=== PATIENT | male | born 1955 | race Caucasian/White ===

== ENCOUNTER 2016-04-05 13:27 | Emergency (ER) | payer OTHER ==
[2016-04-05] MEDS ORDERED: cloNIDine HCl 0.1 MG TAB ONE (13:43)
[2016-04-05 14:03] LABS: #Basophils 0.1 thou/uL (0.0-0.2); #Eosinphils 0.2 thou/uL (0.0-0.7); #Lymphocytes 3.4 thou/uL (1.20-3.40); #Monocytes 1.1 thou/uL (0.11-0.59); #Neutrophils 6.2 thou/uL (1.40-6.50); %Basophils 1.1 % (0.0-1.0); %Eosinophils 2.1 % (0.0-10.0); %Lymphocytes 30.6 % (21.0-51.0); %Monocytes 9.9 % (0.0-10.0); Hematocrit 45.4 % (42.0-52.0); Mean Platelet Volume 9.4 fL (7.4-10.4); Red Blood Cell (RBC) Count 5.32 mill/uL (4.70-6.10)
[2016-04-05 14:17] LABS: ALT (SGPT) 22 U/L (0-55); AST (SGOT) 19 U/L (5-34); Alkaline Phosphatase 86 U/L (40-150); Anion Gap 15 mmol/L (10-20); BUN (Urea Nitrogen) 18 mg/dL (8.4-25.7); Bilirubin, Total 0.4 mg/dL (0.2-1.2); Calc. Creatinine Clearance 0 mL/min (70-130); Calcium 9.3 mg/dL (7.8-10.44); Carbon Dioxide 24 mmol/L (22-29); Chloride 105 mmol/L (98-107); Estimated GFR-MDRD 83; Globulin 3.4 g/dL (2.4-3.5); Protein, Total 7.3 g/dL (6.0-8.3)
--- NOTE | 2016-04-05 14:42 | ERRECORD ---
[facility] EMERGENCY RECORD HPI HYPERTENSION (13:45 SHAN) CHIEF COMPLAINT: Patient presents for evaluation of high blood pressure. HISTORIAN: History provided by patient, History provided by patient's family, blood pressure going up; has been checking it and many elevated at home. hasn't been able to see provider yet after hospitalization in for cva. TIME COURSE: Gradual onset of symptoms. ASSOCIATED WITH: No associated symptoms. ROS (13:46 SHAN) CONSTITUTIONAL: Negative constitutional review of systems. EYES: Negative eye review of systems. ENT: Negative ears, nose, throat review of systems. CARDIOVASCULAR: Negative cardiovascular review of systems, c/o hypertension. RESPIRATORY: Negative respiratory review of systems. GI: Negative gastrointestinal review of systems. MUSCULOSKELETAL: Negative musculoskeletal review of systems. SKIN: Negative skin review of systems. NEUROLOGIC: Negative neurologic review of systems. NOTES: All systems reviewed, negative except as described above. PAST MEDICAL HISTORY (13:40 MCBE) MEDICAL HISTORY: Flu vaccine not up to date, Tetanus not up to date, Past medical history includes history of hypertension, which has not been treated, Patient is noncompliant. Stroke on 2015. MALE SURGICAL HISTORY: Patient has no surgical history. PSYCHIATRIC HISTORY: No previous psychiatric history. SOCIAL HISTORY: Patient denies alcohol use, Patient denies drug use, Patient has no smoking history, Lives at home. KNOWN ALLERGIES No Known Allergies (Unconfirmed) No Known Drug Allergies CURRENT MEDICATIONS atorvastatin: TABLET : Strength - 40 mg : ORAL Patient Dose: 1 tab(s) Oral once a day (at bedtime). (13:48 MCBE) aspirin: TABLET : Strength - 81 mg : ORAL Patient Dose: 1 mg Oral once a day. (13:49 MCBE) lisinopril: TABLET : Strength - 20 mg : ORAL Patient Dose: 1 mg Oral 2 times a day. (13:49 MCBE) metFORMIN: TABLET : Strength - 500 mg : ORAL &a-1R&a+25V*p+0X*a5886Q*c202B*c15G*c2P*p-0X&a-25V&a+1R Name: Juan Gray : 1955 M60 MedRec: [id number] AcctNum: [id number] Prepared: FriApr 05, 2016 14:50 by Interface Page 1 of 3 pMD [facility] EMERGENCY RECORD Patient Dose: 1 mg Oral 2 times a day. (13:50 MCBE) VITAL SIGNS VITAL SIGNS: BP: 192/99, Pulse: 84, Resp: 18, Temp: 98.1 (Oral), Pain: 0, O2 sat: 96 on Room Air, Time: 04/05/2016 13:35. (13:35 MCBE) BP: 165/107, Pulse: 85, Resp: 18, O2 sat: 96 on Room Air, Time: 04/05/2016 13:46. (13:46 MCBE) BP: 168/100, Pulse: 77, Resp: 16, Pain: 0, O2 sat: 96 on Room Air, Time: 04/05/2016 14:03. (14:03 MSPE) BP: 167/92, Pulse: 78, Resp: 20, Pain: 0, O2 sat: 95 on Room Air, Time: 04/05/2016 14:15. (14:15 MSPE) BP: 154/95, Pulse: 79, Resp: 20, Pain: 0, O2 sat: 95 on Room Air, Time: 04/05/2016 14:30. (14:30 MSPE) PHYSICAL EXAM (13:46 SHAN) CONSTITUTIONAL: Patient afebrile, Pulse normal, Blood pressure normal, Respiratory rate normal, Normal pulse oximetry, Patient appears non toxic, Patient appears pain free, Patient alert and oriented to person, place and time, Nursing notes reviewed. HEAD: Head exam included findings of head atraumatic, normocephalic. EYES: Eye exam included findings of eyelids normal to inspection, Pupils equally round and reactive to light, Extraocular muscles intact. ENT: Pharynx exam normal, Uvula exam normal, Tonsil exam normal. NECK: Neck exam included findings of normal range of motion, Trachea midline. RESPIRATORY CHEST: Respiratory and chest exam normal. CARDIOVASCULAR: Cardiovascular exam included findings of heart rate regular rate and rhythm, Heart sounds normal. ABDOMEN MALE: Abdominal exam included findings of abdomen nontender, Bowel sounds normal. BACK: Back exam normal. UPPER EXTREMITY: Upper extremity exam included findings of inspection normal, Range of motion normal. NEURO: Neuro exam normal. SKIN: Skin exam normal. MEDICATION ADMINISTRATION SUMMARY Drug Name: Angelaaprrocio, Dose Ordered: 2 tab(s), Route: Oral, Status: Given, Time: 13:45 04/05/2016, Detailed record available in Medication Service section. DOCTOR NOTES (13:47 MADISON) TEXT: Adult male with hypertension, diabetes, obesity; who had a stroke in Feb 2016 involving speech and right leg movement. Largely resolved from that episode but hasn't gotten in to see a provider yet and bp has been staying elevated. &a-1R&a+25V*p+0X*e0100K*c202B*c15G*c2P*p-0X&a-25V&a+1R Name: Juan Gray : 1955 M60 MedRec: [id number] AcctNum: [id number] Prepared: FriApr 05, 2016 14:50 by Interface Page 2 of 3 pMD [facility] EMERGENCY RECORD PROBLEM LIST No recorded problems DIAGNOSIS (14:28 MADISON) FINAL: PRIMARY: Hypertension, ADDITIONAL: CEREBROVASCULAR DISEASE UNSPECIFIED. PRESCRIPTION (14:29 MADISON) Norvasc: TABLET : 5 mg : ORAL : Quantity: 1 Unit: tab(s) Route: ORAL Schedule: once a day (in the morning) Dispense: 30 Unit: tab(s) May substitute. Refills: 2 . NOTES: No Refills. DISPOSITION PATIENT: Disposition Type: Discharge, Disposition: *Discharge Home. (14:28 MADISON) Patient left the department. (14:45 ROSIE) Wyatt: VANI=Suzette Heard=HENRY Scott, Pallavi WALLACE=MD Ponce Stanley &a-1R&a+25V*p+0X*u6948O*c202B*c15G*c2P*p-0X&a-25V&a+1R Name: Juan Gray : 1955 M60 MedRec: [id number] AcctNum: [id number] Prepared: FriApr 05, 2016 14:50 by Interface Page 3 of 3 pMD MTDD
--- NOTE | 2016-04-05 14:50 | PICIS ---
[facility] EMERGENCY RECORD TRIAGE (13:34 MCBE) TRIAGE NOTES: home health personal told person to bring patient to er for high blood pressure. stroke on feb. taking medications as prescribed. (13:34 MCBE) PATIENT: NAME: Juan Gray, AGE: 60, GENDER: male, : Fri1955, TIME OF GREET: FriApr 05, 2016 13:28, PREFERRED LANGUAGE: Czech, ETHNICITY: Not or , ECODE BILLING MAP: [facility], SSN: [id number], Zip Code: [address], KG WEIGHT: [phone], PHONE: , , , PERSON ID: [id number]. (13:34 MCBE) COMPLAINT: ELEVATED BLOOD PRESSURE. (13:34 MCBE) ADMISSION: URGENCY: 2 Emergent, ADMISSION SOURCE: Home, TRANSPORT: CAR, BED: ER -02. (13:34 MCBE) ASSESSMENT: Assessment: patient denies having any symptoms. denies headache or chest pain. (13:40 MCBE) IMMUNIZATIONS: Flu vaccine up to date, Tetanus immunization up to date. (13:40 MCBE) SIRS SCORING: Heart Rate 55-109 (0), Temp range 96.8-101.1 (0), respiratory rate 12-24 (0), Mental Status altered: no (0), Infection or Suspected Infection: No. (13:40 MCBE) TRIAGE SCREENING: Patient denies suicidal ideation, Patient denies presence of domestic violence. (13:40 MCBE) PROVIDERS: TRIAGE NURSE: Suzette Heard. (13:34 MCBE) PREVIOUS VISIT ALLERGIES: No Known Drug Allergies. (13:34 MCBE) No Known Drug Allergies. (13:40 MCBE) KNOWN ALLERGIES No Known Allergies (Unconfirmed) No Known Drug Allergies CURRENT MEDICATIONS atorvastatin: TABLET : Strength - 40 mg : ORAL Patient Dose: 1 tab(s) Oral once a day (at bedtime). (13:48 MCBE) aspirin: TABLET : Strength - 81 mg : ORAL Patient Dose: 1 mg Oral once a day. (13:49 MCBE) lisinopril: TABLET : Strength - 20 mg : ORAL Patient Dose: 1 mg Oral 2 times a day. (13:49 MCBE) metFORMIN: TABLET : Strength - 500 mg : ORAL Patient Dose: 1 mg Oral 2 times a day. (13:50 MCBE) VITAL SIGNS VITAL SIGNS: BP: 192/99, Pulse: 84, Resp: 18, Temp: 98.1 (Oral), Pain: 0, O2 sat: 96 on Room Air, Time: 04/05/2016 13:35. (13:35 MCBE) BP: 165/107, Pulse: 85, Resp: 18, O2 sat: 96 on Room Air, Time: 04/05/2016 &a-1R&a+25V*p+0X*s1717M*c202B*c15G*c2P*p-0X&a-25V&a+1R Name: Juan Gray : 1955 M60 MedRec: [id number] AcctNum: [id number] Prepared: FriApr 05, 2016 14:55 by Interface Page 1 of 8 pMD [facility] EMERGENCY RECORD 13:46. (13:46 MCBE) BP: 168/100, Pulse: 77, Resp: 16, Pain: 0, O2 sat: 96 on Room Air, Time: 04/05/2016 14:03. (14:03 MSPE) BP: 167/92, Pulse: 78, Resp: 20, Pain: 0, O2 sat: 95 on Room Air, Time: 04/05/2016 14:15. (14:15 MSPE) BP: 154/95, Pulse: 79, Resp: 20, Pain: 0, O2 sat: 95 on Room Air, Time: 04/05/2016 14:30. (14:30 MSPE) NURSING ASSESSMENT: HEAD-TO-TOE (13:47 MCBE) CONSTITUTIONAL: Complex assessment performed, Patient arrives ambulatory, Gait steady, History obtained from patient, Patient appears comfortable, Patient cooperative, Patient alert, Oriented to person, place and time, Skin warm, Skin dry, Skin normal in color, Mucous membranes pink, Mucous membranes moist, Patient is well-groomed. PAIN: Patient rates pain as 0 out of 10. NEURO: Pupils equally round and reactive to light, Able to close eyes, Face symmetrical, Speech normal, GCS:, Eye opening: (4) - Spontaneous, Verbal: (5) - Oriented/conversive, Motor: (6) - Obeys commands/Spontaneous, GCS Total: 15. ENT: Ear assessment findings include ear normal to inspection, Nasal assessment findings include nose normal to inspection, Mouth and throat assessment findings include mouth inspection normal. RESPIRATORY/CHEST: Breath sounds clear, Respiratory assessment findings include respiratory effort easy, Respirations regular, Conversing normally, Neck and chest exam findings include trachea midline, Chest expansion equal, Chest movement symmetrical, no signs of distress, no retractions noted. CARDIOVASCULAR: Cardiovascular assessment findings include heart rate normal, Heart rhythm normal sinus, Heart sounds normal, S1, S2, Left radial pulse +3(easily palpated, considered normal), Right radial pulse +3(easily palpated, considered normal). ABDOMEN: Abdomen assessment findings include abdomen symmetrical, Abdomen soft, non-tender, Bowel sound normal, no associated nausea, no associated vomiting, no associated diarrhea, no associated constipation. LEFT UPPER EXTREMITY: Left upper extremity assessment findings include capillary refill less than 2 seconds, Skin color normal to hand, Skin temperature to hand warm, Distal sensation intact, Muscle tone normal, radial pulse is +3, brachial pulse is +3, Inspection findings include: No pressure ulcer to the shoulder, Inspection findings include no pressure ulcer to the elbow, Inspection findings include no pressure ulcer. RIGHT UPPER EXTREMITY: Right upper extremity assessment findings include capillary refill less than 2 seconds, Skin color normal to hand, Skin temperature to hand warm, Distal sensation intact, Muscle tone normal, radial pulse is +3, brachial pulse is +3, Inspection findings include: No pressure ulcer to the shoulder, Inspection findings include no pressure ulcer to the elbow, Inspection findings include no pressure ulcer. &a-1R&a+25V*p+0X*c1176X*c202B*c15G*c2P*p-0X&a-25V&a+1R Name: Juan Gray : 1955 M60 MedRec: [id number] AcctNum: [id number] Prepared: FriApr 05, 2016 14:55 by Interface Page 2 of 8 pMD [facility] EMERGENCY RECORD LEFT LOWER EXTREMITY: Left lower extremity assessment findings include capillary refill less than 2 seconds, Skin color normal, Skin temperature warm, Distal sensation intact, Muscle tone normal, Inspection findings include no pressure ulcers to the hip, Inspection findings include no pressure ulcer to the sacrum, Inspection findings include no pressure ulcer to the heel, Inspection findings include no pressure ulcer. RIGHT LOWER EXTREMITY: Right lower extremity assessment findings include capillary refill less than 2 seconds, Skin color normal, Skin temperature warm, Distal sensation intact, Muscle tone normal, Inspection findings include no pressure ulcers to the hip, Inspection findings include no pressure ulcer to the sacrum, Inspection findings include no pressure ulcer to the heel, Inspection findings include no pressure ulcer. NURSING PROCEDURE: LINEN MANAGER (13:41 MCBE) PATIENT IDENTIFIER: Patient actively involved in identification process, Patient's identity verified by patient stating name, Patient's identity verified by patient stating date, Patient's identity verified by hospital ID bracelet. LINEN MANAGER: Cardiac monitoring indicated for high BP, Patient placed on oven tender, Heart rate: 81, showing normal sinus rhythm, Patient placed on non-invasive blood pressure monitor, with disposable blood pressure cuff applied, Patient placed on continuous pulse oximetry, Adult/pediatric oxisensor applied. NURSING PROCEDURE: DISCHARGE NOTE (14:37 MSPE) DISCHARGE: Patient discharged to home, in a wheelchair, friend driving, accompanied by friend, Summary of Care printed/ provided, Discharge instructions given to patient, Discharge instructions given to and friend, Simple or moderate discharge teaching performed, Prescriptions given and instructions on side effects given, Above person(s) verbalized understanding of discharge instructions and follow-up care, Patient treated and evaluated by physician. BELONGINGS: Belongings remain with patient. NURSING PROCEDURE: EKG CHART (13:42 MCBE) PATIENT IDENTIFIER: Patient actively involved in identification process, Patient's identity verified by patient stating name, Patient's identity verified by patient stating date, Patient's identity verified by hospital ID bracelet. EKG: EKG indicated for high blood pressue. FOLLOW-UP: After procedure, EKG for interpretation given to Dr. Ponce. NURSING PROCEDURE: IV PATIENT IDENITIFIER: Patient actively involved in identification process, Patient's identity verified by patient stating name, Patient's identity verified by patient stating date, Patient's &a-1R&a+25V*p+0X*g1630Q*c202B*c15G*c2P*p-0X&a-25V&a+1R Name: Juan Gray: 1955 M60 MedRec: [id number] AcctNum: [id number] Prepared: FriApr 05, 2016 14:55 by Interface Page 3 of 8 pMD [facility] EMERGENCY RECORD identity verified by hospital ID bracelet. (13:52 MCBE) IV SITE 1: IV therapy indicated for hydration, IV therapy indicated for medication administration, IV established, to the right hand, using an 18 gauge catheter, in one attempt, IV site prepped with CHLORAPREP, Saline lock established, Flushed with normal saline (mls): 10, Labs drawn at time of placement, labeled in the presence of the patient and sent to lab. (13:52 MCBE) FOLLOW-UP SITE 1: After procedure, 2x2 dressing applied, IV discontinued, due to patient being discharged, catheter intact. (14:35 MSPE) NOTES: Procedure done by PALLAVI FIGUEROA. (13:52 MCBE) ORDER DETAILS Order Name: LINEN MANAGER ED, Status: Done, Time: 13:42 04/05/2016, User: VANI, - Ordered for: MD Ponce Stanley, - Entered by: MD Ponce Stanley - FriApr 05, 2016 13:40, - Quantity: 1, Order Name: CBC with Differential, Status: Active, Time: 13:40 04/05/2016, User: MADISON, - Ordered for: MD Ponce Stanley, - Entered by: MD Ponce Stanley - FriApr 05, 2016 13:40, - Quantity: 1, Order Name: Comprehensive Metabolic Panel, Status: Active, Time: 13:40 04/05/2016, User: MADISON, - Ordered for: MD Ponce Stanley, - Entered by: MD Ponce Stanley - FriApr 05, 2016 13:40, - Quantity: 1, Order Name: EKG 12 Lead in Emergency Room, Status: Active, Time: 13:40 04/05/2016, User: MADISON, - Ordered for: MD Ponce Stanley, - Entered by: MD Ponce Stanley - FriApr 05, 2016 13:40, - Quantity: 1, Order Name: SALINE LOCK, Status: Done, Time: 13:52 04/05/2016, User: VANI, - Ordered for: MD Ponce Stanley, - Entered by: MD Ponce Stanley - FriApr 05, 2016 13:40, - Quantity: 1. MEDICATION ADMINISTRATION SUMMARY Drug Name: Catapres, Dose Ordered: 2 tab(s), Route: Oral, Status: Given, Time: 13:45 04/05/2016, Detailed record available in Medication Service section. MEDICATION SERVICE (13:45 SHAN) Catapres: Order: Catapres (clonidine HCl) - Dose: 2 tab(s) : Oral Schedule: Now &a-1R&a+25V*p+0X*z3861I*c202B*c15G*c2P*p-0X&a-25V&a+1R Name: Juan Gray : 1955 M60 MedRec: [id number] AcctNum: [id number] Prepared: FriApr 05, 2016 14:55 by Interface Page 4 of 8 pMD [facility] EMERGENCY RECORD Ordered by: Robert Ponce MD Entered by: Robert Ponce MD FriApr 05, 2016 13:42 , Acknowledged by: Suzette Heard FriApr 05, 2016 13:42 Documented as given by: Suzette Heard FriApr 05, 2016 13:45 Patient, Medication, Dose, Route and Time verified prior to administration. Amount given: 2 tabs, Site: Medication administered P.O., Patient appears Awake and alert- acceptable, Correct patient, time, route, dose and medication confirmed prior to administration, Patient advised of actions and side-effects prior to administration, Allergies confirmed and medications reviewed prior to administration, Patient in position of comfort, Side rails up, Cart in lowest position, Family at bedside, Call light in reach. HPI HYPERTENSION (13:45 SHAN) CHIEF COMPLAINT: Patient presents for evaluation of high blood pressure. HISTORIAN: History provided by patient, History provided by patient's family, blood pressure going up; has been checking it and many elevated at home. hasn't been able to see provider yet after hospitalization in for cva. TIME COURSE: Gradual onset of symptoms. ASSOCIATED WITH: No associated symptoms. ROS (13:46 SHAN) CONSTITUTIONAL: Negative constitutional review of systems. EYES: Negative eye review of systems. ENT: Negative ears, nose, throat review of systems. CARDIOVASCULAR: Negative cardiovascular review of systems, c/o hypertension. RESPIRATORY: Negative respiratory review of systems. GI: Negative gastrointestinal review of systems. MUSCULOSKELETAL: Negative musculoskeletal review of systems. SKIN: Negative skin review of systems. NEUROLOGIC: Negative neurologic review of systems. NOTES: All systems reviewed, negative except as described above. PAST MEDICAL HISTORY (13:40 MCBE) MEDICAL HISTORY: Flu vaccine not up to date, Tetanus not up to date, Past medical history includes history of hypertension, which has not been treated, Patient is noncompliant. Stroke on 2015. MALE SURGICAL HISTORY: Patient has no surgical history. PSYCHIATRIC HISTORY: No previous psychiatric history. SOCIAL HISTORY: Patient denies alcohol use, Patient denies drug use, Patient has no smoking history, Lives at home. PHYSICAL EXAM (13:46 SHAN) CONSTITUTIONAL: Patient afebrile, Pulse normal, Blood pressure normal, Respiratory rate normal, Normal pulse oximetry, Patient &a-1R&a+25V*p+0X*p7344T*c202B*c15G*c2P*p-0X&a-25V&a+1R Name: Juan Gray : 1955 M60 MedRec: [id number] AcctNum: [id number] Prepared: FriApr 05, 2016 14:55 by Interface Page 5 of 8 pMD [facility] EMERGENCY RECORD appears non toxic, Patient appears pain free, Patient alert and oriented to person, place and time, Nursing notes reviewed. HEAD: Head exam included findings of head atraumatic, normocephalic. EYES: Eye exam included findings of eyelids normal to inspection, Pupils equally round and reactive to light, Extraocular muscles intact. ENT: Pharynx exam normal, Uvula exam normal, Tonsil exam normal. NECK: Neck exam included findings of normal range of motion, Trachea midline. RESPIRATORY CHEST: Respiratory and chest exam normal. CARDIOVASCULAR: Cardiovascular exam included findings of heart rate regular rate and rhythm, Heart sounds normal. ABDOMEN MALE: Abdominal exam included findings of abdomen nontender, Bowel sounds normal. BACK: Back exam normal. UPPER EXTREMITY: Upper extremity exam included findings of inspection normal, Range of motion normal. NEURO: Neuro exam normal. SKIN: Skin exam normal. EVENTS TRANSFER: Triage to Emergency Emergency Room -02. (FriApr 05, 2016 13:34 MCBE) Removed from Emergency Emergency Room -02. (14:45 MSPE) DOCTOR NOTES (13:47 SHAN) TEXT: Adult male with hypertension, diabetes, obesity; who had a stroke in Feb 2016 involving speech and right leg movement. Largely resolved from that episode but hasn't gotten in to see a provider yet and bp has been staying elevated. PROBLEM LIST No recorded problems DIAGNOSIS (14:28 SHAN) FINAL: PRIMARY: Hypertension, ADDITIONAL: CEREBROVASCULAR DISEASE UNSPECIFIED. DISPOSITION PATIENT: Disposition Type: Discharge, Disposition: *Discharge Home. (14:28 SHAN) Patient left the department. (14:45 MSPE) INSTRUCTION (14:31 SHAN) DISCHARGE: HYPERTENSION, ESTABLISHED, OUT OF CONTROL. SPECIAL: 1. new pill every morning (Norvasc/amlodipine) 2. followup with regular provider soon 3. continue other medications the same as you are doing 4. return if condition worsens. &a-1R&a+25V*p+0X*n1314F*c202B*c15G*c2P*p-0X&a-25V&a+1R Name: Juan Gray : 1955 M60 MedRec: [id number] AcctNum: [id number] Prepared: FriApr 05, 2016 14:55 by Interface Page 6 of 8 pMD [facility] EMERGENCY RECORD PRESCRIPTION (14:29 SHAN) Norvasc: TABLET : 5 mg : ORAL : Quantity: 1 Unit: tab(s) Route: ORAL Schedule: once a day (in the morning) Dispense: 30 Unit: tab(s) May substitute. Refills: 2 . NOTES: No Refills. IMAGING *EKG: Image captured from scanner. (13:54 MSPE) *DISCHARGE INSTRUCTIONS RECEIPT: Image captured from scanner. (14:44 MSPE) *SUPPLY CHARGE SHEET: Image captured from scanner. (14:45 MSPE) ADMIN (14:31 SHAN) DIGITAL SIGNATURE: MD Ponce Stanley. RESULTS LABORATORY: CBC with Differential Collection DT: FriApr 05, 2016 13:56, *White Blood Cell (WBC) Count 11.0 - H thou/uL, Range (4.8-10.8), Red Blood Cell (RBC) Count 5.32 mill/uL, Range (4.70-6.10), Hemoglobin 14.3 g/dL, Range (14.0-18.0), Hematocrit 45.4 %, Range (42.0-52.0), Mean Corpuscular Volume 85.3 fl, Range (80.0-94.0), Mean Corpuscular Hemoglobin 27.0 pg, Range (27.0-31.0), *Mean Corpuscular HGB CONC 31.6 - L g/dL, Range (32.0-36.0), RBC Distribution Width 13.3 %, Range (11.5-14.5), Platelet Count 305 thou/uL, Range (130-400), Mean Platelet Volume 9.4 fL, Range (7.4-10.4), %Neutrophils 56.3 %, Range (42.0-75.0), %Lymphocytes 30.6 %, Range (21.0-51.0), %Monocytes 9.9 %, Range (0.0-10.0), %Eosinophils 2.1 %, Range (0.0-10.0), *%Basophils 1.1 - H %, Range (0.0-1.0), #Neutrophils 6.2 thou/uL, Range (1.40-6.50), #Lymphocytes 3.4 thou/uL, Range (1.20-3.40), *#Monocytes 1.1 - H thou/uL, Range (0.11-0.59), #Eosinphils 0.2 thou/uL, Range (0.0-0.7), #Basophils 0.1 thou/uL, Range (0.0-0.2). (14:13 [facility] [place] Comprehensive Metabolic Panel Collection DT: FriApr 05, 2016 13:56, Sodium 140 mmol/L, Range (136-145), Potassium 4.4 mmol/L, Range (3.5-5.1), Chloride 105 mmol/L, Range (98-107), Carbon Dioxide 24 mmol/L, Range (22-29), Anion Gap 15 mmol/L, Range (10-20), BUN (Urea Nitrogen) 18 mg/dL, Range (8.4-25.7), Creatinine 0.93 mg/dL, Range (0.7-1.3), Estimated GFR-MDRD 83 , Reference Range for Estimated GFR: &a-1R&a+25V*p+0X*s4098A*c202B*c15G*c2P*p-0X&a-25V&a+1R Name: Juan Gray : 1955 M60 MedRec: [id number] AcctNum: [id number] Prepared: FriApr 05, 2016 14:55 by Interface Page 7 of 8 pMD [facility] EMERGENCY RECORD Greater than 90, mL/min/1.73 m2 NOTE: The MDRD equation has not been validated for use, with the elderly (over 70 years of age), women, patients with, serious comorbid condition or persons with extremes of body size, muscle, mass, or nutritional status. , Glucose 105 mg/dL, Range (70-105), Calcium 9.3 mg/dL, Range (7.8-10.44), Bilirubin, Total 0.4 mg/dL, Range (0.2-1.2), Protein, Total 7.3 g/dL, Range (6.0-8.3), NOTE: Plasma values are generally 0.3 to 0.5 g/dL higher than serum values, due to the presence of fibrinogen. , Albumin 3.9 g/dL, Range (3.5-5.0), Globulin 3.4 g/dL, Range (2.4-3.5), *Alb/Glob Ratio 1.1 - L g/dL, Range (1.2-2.2), Alkaline Phosphatase 86 U/L, Range (40-150), AST (SGOT) 19 U/L, Range (5-34), ALT (SGPT) 22 U/L, Range (0-55). (14:25 MADISON) Wyatt: VANI=Suzette Heard=HENRY Scott, Pallavi WALLACE=MD Ponce Stanley &a-1R&a+25V*p+0X*p4012R*c202B*c15G*c2P*p-0X&a-25V&a+1R Name: Juan Gray : 1955 M60 MedRec: [id number] AcctNum: [id number] Prepared: FriApr 05, 2016 14:55 by Interface Page 8 of 8 pMD MTDD
== END 2016-04-05 14:37 | disposition home or self-care (01) ==
LOC: NAV ERS 13:27
DX: I10 Essential (primary) hypertension (principal); I67.9 Cerebrovascular disease, unspecified; E11.9 Type 2 diabetes mellitus without complications; Z79.82 Long term (current) use of aspirin; Z79.899 Other long term (current) drug therapy; Z79.84 Long term (current) use of oral hypoglycemic drugs
CPT/HCPCS: 80053; 85025; 93005

== ENCOUNTER 2016-06-27 18:36 | Outpatient (CLI) | payer OTHER | END 2016-06-27 18:37 | disposition home or self-care (01) | LOC: NAV LABSP 18:36 | PROVIDERS: ATTEND Family Medicine | DX: L03.317 Cellulitis of buttock (principal) | CPT/HCPCS: 87070; 87205 ==

== ENCOUNTER 2016-07-10 08:36 | Outpatient (CLI) | payer OTHER ==
[2016-07-10 12:28] LABS: #Basophils 0.2 thou/uL (0.0-0.2); #Eosinphils 0.4 thou/uL (0.0-0.7); #Lymphocytes 3.4 thou/uL (1.20-3.40); #Monocytes 0.8 thou/uL (0.11-0.59); #Neutrophils 5.5 thou/uL (1.40-6.50); %Basophils 1.7 % (0.0-1.0); %Eosinophils 4.2 % (0.0-10.0); %Monocytes 8.1 % (0.0-10.0); Hemoglobin 13.6 g/dL (14.0-18.0); Mean Corpuscular HGB CONC 32.6 g/dL (32.0-36.0); Mean Corpuscular Hemoglobin 28.7 pg (27.0-31.0); Mean Corpuscular Volume 87.9 fl (80.0-94.0); Mean Platelet Volume 9.3 fL (7.4-10.4); Platelet Count 248 thou/uL (130-400); RBC Distribution Width 14.6 % (11.5-14.5); Red Blood Cell (RBC) Count 4.76 mill/uL (4.70-6.10); White Blood Cell (WBC) Count 10.4 thou/uL (4.8-10.8)
[2016-07-10 12:44] LABS: Hemoglobin A1c 5.5 % (4.0-6.0)
[2016-07-10 13:01] LABS: ALT (SGPT) 14 U/L (0-55); AST (SGOT) 15 U/L (5-34); Albumin 4.3 g/dL (3.5-5.0); Alkaline Phosphatase 102 U/L (40-150); Anion Gap 17 mmol/L (10-20); BUN (Urea Nitrogen) 17 mg/dL (8.4-25.7); Bilirubin, Direct 0.2 mg/dL (0.1-0.3); Bilirubin, Total 0.3 mg/dL (0.2-1.2); Calc. Creatinine Clearance 0 mL/min (70-130); Calcium 9.6 mg/dL (7.8-10.44); Carbon Dioxide 24 mmol/L (22-29); Chloride 105 mmol/L (98-107); Cholesterol 117 mg/dL (< 200 Desired); Estimated GFR-MDRD 65; Glucose 92 mg/dL (70-105); HDL Cholesterol 29 mg/dL (>60 Neg Risk); LDL Cholesterol, Calculated 60 mg/dL; Potassium 5.5 mmol/L (3.5-5.1); Protein, Total 7.2 g/dL (6.0-8.3); Sodium 140 mmol/L (136-145); Triglycerides 139 mg/dL (Less than 150)
[2016-07-10 13:16] LABS: PSA-Asymptomatic (SCREENING) 0.82 ng/mL (0-4.0); Thyroid Stimulating Hormone 1.7488 uIU/mL (0.35-4.94)
== END 2016-07-10 08:37 | disposition home or self-care (01) ==
LOC: NAVSJIPCSP 08:36
PROVIDERS: ATTEND Family Medicine
DX: E11.9 Type 2 diabetes mellitus without complications (principal); Z12.5 Encounter for screening for malignant neoplasm of prostate; I10 Essential (primary) hypertension; E78.00 Pure hypercholesterolemia, unspecified; Z79.899 Other long term (current) drug therapy
CPT/HCPCS: 36415; 80048; 80061; 80076; 83036; 84443; 85025; G0103

== ENCOUNTER 2016-07-18 18:31 | Outpatient (CLI) | payer OTHER | END 2016-07-18 18:32 | disposition home or self-care (01) | LOC: NAV LABSP 18:31 | PROVIDERS: ATTEND Family Medicine | DX: L03.317 Cellulitis of buttock (principal) | CPT/HCPCS: 87070; 87205 ==

== ENCOUNTER 2016-09-25 13:06 | Outpatient (CLI) | payer OTHER ==
--- NOTE | 2016-09-26 07:37 | RAD ---
LUMBAR SPINE 3 VIEWS: Date: 09/25/16 HISTORY: Back pain. Disability evaluation. FINDINGS: Lumbar vertebra maintain height and alignment. Mild loss of disc space at L1-2 and L2-3 levels. Very mild degenerative osteophytes from the lumbar vertebra. Mild facet hypertrophy throughout the lumba r spine. No evidence of spondylolisthesis or spondylolysis. IMPRESSION: There are mild degenerative changes as described. POS: MARIUM
== END 2016-09-25 13:07 | disposition home or self-care (01) ==
LOC: NAV RAD 13:06
PROVIDERS: ATTEND Family Medicine
DX: Z02.71 Encounter for disability determination (principal); M47.816 Spondylosis without myelopathy or radiculopathy, lumbar region
CPT/HCPCS: 72100

== ENCOUNTER 2016-11-29 09:26 | Outpatient (CLI) | payer MEDICAID ==
[2016-11-29 12:25] LABS: #Basophils 0.1 thou/uL (0.0-0.2); #Eosinphils 0.3 thou/uL (0.0-0.7); #Lymphocytes 3.9 thou/uL (1.20-3.40); #Monocytes 0.9 thou/uL (0.11-0.59); #Neutrophils 6.8 thou/uL (1.40-6.50); %Basophils 0.9 % (0.0-1.0); %Eosinophils 2.7 % (0.0-10.0); %Lymphocytes 32.4 % (21.0-51.0); %Monocytes 7.1 % (0.0-10.0); %Neutrophils 56.9 % (42.0-75.0); Hemoglobin 13.6 g/dL (14.0-18.0); Mean Corpuscular HGB CONC 32.5 g/dL (32.0-36.0); Mean Corpuscular Hemoglobin 28.1 pg (27.0-31.0); Mean Corpuscular Volume 86.6 fl (80.0-94.0); Mean Platelet Volume 8.8 fL (7.4-10.4); Platelet Count 270 thou/uL (130-400); RBC Distribution Width 13.6 % (11.5-14.5); Red Blood Cell (RBC) Count 4.82 mill/uL (4.70-6.10)
[2016-11-29 12:27] LABS: ALT (SGPT) 16 U/L (8-55); AST (SGOT) 16 U/L (5-34); Albumin 4.3 g/dL (3.5-5.0); Alkaline Phosphatase 96 U/L (40-150); Anion Gap 17 mmol/L (10-20); BUN (Urea Nitrogen) 17 mg/dL (8.4-25.7); Bilirubin, Direct 0.2 mg/dL (0.1-0.3); Bilirubin, Total 0.4 mg/dL (0.2-1.2); Calc. Creatinine Clearance 0 mL/min (70-130); Calcium 9.6 mg/dL (7.8-10.44); Carbon Dioxide 24 mmol/L (22-29); Cardiac Risk 3.9 (Less than 4.5); Chloride 105 mmol/L (98-107); Cholesterol 120 mg/dl (< 200 Desired); Estimated GFR-MDRD 86; Glucose 97 mg/dL (70-105); HDL Cholesterol 31 mg/dL (>60 Neg Risk); LDL Cholesterol, Calculated 57 mg/dL; Potassium 4.7 mmol/L (3.5-5.1); Protein, Total 7.2 g/dL (6.0-8.3); Sodium 141 mmol/L (136-145); Triglycerides 159 mg/dL (Less than 150)
[2016-11-29 12:39] LABS: Hemoglobin A1c 5.4 % (4.0-6.0)
== END 2016-11-29 09:27 | disposition home or self-care (01) ==
LOC: NAVSJIPCSP 09:26
PROVIDERS: ATTEND Family Medicine
DX: E11.9 Type 2 diabetes mellitus without complications (principal); E78.00 Pure hypercholesterolemia, unspecified; I10 Essential (primary) hypertension; Z79.899 Other long term (current) drug therapy
CPT/HCPCS: 36415; 80048; 80061; 80076; 83036; 84443; 85025

== ENCOUNTER 2018-12-23 12:55 | Emergency (ER) | payer OTHER ==
[2018-12-23 13:58] LABS: Bilirubin Small (Negative); Blood, Urine Large (Negative); Clarity Cloudy (Clear); Glucose, Urine (Dipstick) Negative (Negative); Leukocyte Negative (Negative); Nitrite Negative (Negative); Protein, Urine (Dipstick) > or equal to 300 mg/dL (Neg-Trace); Urobilinogen 0.2 mg/dL (Less than 2)
[2018-12-23 14:10] LABS: Bacteria/HPF Rare-Few HPF (None Seen); RBC/HPF Greater than 50 HPF (0-3); Squamous Epithelial 0-3 HPF (0-3); WBC/HPF 0-3 HPF (0-3)
[2018-12-23 14:19] LABS: #Basophils 0.1 thou/uL (0.0-0.2); #Eosinphils 0.5 thou/uL (0.0-0.7); #Lymphocytes 4.1 thou/uL (1.20-3.40); #Monocytes 1.2 thou/uL (0.11-0.59); #Neutrophils 6.7 thou/uL (1.40-6.50); %Lymphocytes 32.5 % (21.0-51.0); %Monocytes 9.7 % (0.0-10.0); %Neutrophils 52.8 % (42.0-75.0); Hemoglobin 14.5 g/dL (14.0-18.0); Mean Corpuscular HGB CONC 32.1 g/dL (32.0-36.0); Mean Corpuscular Hemoglobin 28.4 pg (27.0-31.0); Mean Corpuscular Volume 88.4 fL (78.0-98.0); Mean Platelet Volume 7.5 fL (7.4-10.4); Platelet Count 263 thou/uL (130-400); RBC Distribution Width 13.6 % (11.5-14.5); White Blood Cell (WBC) Count 12.6 thou/uL (4.8-10.8)
[2018-12-24 22:53] LABS: Chlam.trachomatis by PCR,Urine Not Detected (NotDetected)
== END 2018-12-23 15:00 | disposition home or self-care (01) ==
LOC: NAV ERS 12:55
DX: R31.9 Hematuria, unspecified (principal); E11.9 Type 2 diabetes mellitus without complications; I10 Essential (primary) hypertension; F32.9 Major depressive disorder, single episode, unspecified; Z79.899 Other long term (current) drug therapy; Z86.73 Personal history of transient ischemic attack (TIA), and cerebral infarction without residual deficits; Z79.84 Long term (current) use of oral hypoglycemic drugs
CPT/HCPCS: 36415; 81003; 81015; 85025; 87491; 87591; 99283

== ENCOUNTER 2020-01-16 20:43 | Emergency (ER) | payer OTHER ==
[2020-01-16] MEDS ORDERED: Nitroglycerin 2% Ointment 1 INCH/1 GM Packet ONE (20:53)
[2020-01-16] MEDS ORDERED: Pantoprazole 40 MG VIAL ONE (21:02)
[2020-01-16] MEDS ORDERED: Acetaminophen 500 MG TAB ONE (21:02)
[2020-01-16 21:09] LABS: #Basophils 0.1 thou/uL (0.0-0.2); #Eosinphils 0.5 thou/uL (0.0-0.7); #Lymphocytes 4.4 thou/uL (1.20-3.40); #Monocytes 1.4 thou/uL (0.11-0.59); #Neutrophils 7.6 thou/uL (1.40-6.50); %Basophils 0.9 % (0.0-1.0); %Eosinophils 3.8 % (0.0-10.0); %Lymphocytes 31.1 % (21.0-51.0); %Neutrophils 54.3 % (42.0-75.0); Hemoglobin 14.9 g/dL (14.0-18.0); Mean Corpuscular HGB CONC 31.9 g/dL (32.0-36.0); Mean Corpuscular Hemoglobin 29.1 pg (27.0-31.0); Mean Corpuscular Volume 91.3 fL (78.0-98.0); Mean Platelet Volume 8.4 fL (7.4-10.4); Platelet Count 302 thou/uL (130-400)
[2020-01-16 21:25] LABS: ALT (SGPT) 19 U/L (8-55); AST (SGOT) 15 U/L (5-34); Albumin 4.3 g/dL (3.4-4.8); Alkaline Phosphatase 99 U/L (40-110); Anion Gap 14 mmol/L (10-20); BUN (Urea Nitrogen) 26 mg/dL (8.4-25.7); Bilirubin, Total 0.1 mg/dL (0.2-1.2); Calc. Creatinine Clearance 0 mL/min (70-130); Calcium 9.1 mg/dL (7.8-10.44); Carbon Dioxide 24 mmol/L (23-31); Chloride 105 mmol/L (98-107); Estimated GFR-MDRD 55; Globulin 3.1 g/dL (2.4-3.5); Glucose 230 mg/dL (80-115); Potassium 3.8 mmol/L (3.5-5.1); Protein, Total 7.4 g/dL (5.8-8.1); Sodium 139 mmol/L (136-145)
[2020-01-16] MEDS ORDERED: Enoxaparin Sodium 100 MG/ML SYRINGE ONE (21:34)
[2020-01-16] MEDS ORDERED: Enoxaparin Sodium 40 MG/0.4 ML SYRINGE ONE (21:34)
[2020-01-16] MEDS ORDERED: Enoxaparin Sodium 120 MG/0.8 ML SYRINGE SC ONE (21:37)
[2020-01-16 21:40] LABS: CKMB 2.4 ng/mL (0-6.6)
--- NOTE | 2020-01-16 22:02 | RAD ---
Chest AP view INDICATION: Chest pain COMPARISON: March 13, 2016. FINDINGS: Lungs: The lungs are clear Cardiac silhouette: Stable cardiomegaly Pulmonary vasculature: Normal Pleural spaces: No pleural effusion or pneumothorax is demonstrated. Upper abdomen: No abnormality seen. Osseous structures: No acute osseous abnormality. Additional findings: None. IMPRESSION: No acute cardiopulmonary abnormality.
== END 2020-01-16 22:02 | disposition short-term general hospital (02) ==
LOC: NAV ERS 20:43
DX: R07.2 Precordial pain (principal); R79.89 Other specified abnormal findings of blood chemistry; I10 Essential (primary) hypertension; E11.9 Type 2 diabetes mellitus without complications; F32.9 Major depressive disorder, single episode, unspecified; Z86.73 Personal history of transient ischemic attack (TIA), and cerebral infarction without residual deficits; Z79.82 Long term (current) use of aspirin; Z79.899 Other long term (current) drug therapy; Z79.84 Long term (current) use of oral hypoglycemic drugs
CPT/HCPCS: 71045; 80053; 82553; 83880; 84484; 85025; 85379; 93005; 96372; 96374; C9113; J1650